=== PATIENT | male | born 1960 | race Asian ===

== ENCOUNTER 2018-04-23 02:02 | Inpatient (IN) | payer MEDICAID ==
[2018-04-23] VITALS (7 sets, daily range): BP systolic 100–118
[~2018-04-23] VITALS: Ht 170.2 cm; Wt 60.8 kg
[2018-04-23] MEDS ORDERED: NACL 0.9% 1,000 ML IV ONE (02:30)
[2018-04-23] MEDS ORDERED: LIDOCAINE 1% 10 MG/ML, 20 ML MDV INJ ONE (02:45)
[2018-04-23 03:17] LABS: INR 0.9 (0.80-1.20); PROTHROMBIN TIME 9.7 SECS (9.5-12.5)
[2018-04-23 03:18] LABS: POTASSIUM 3.8 mmol/L (3.5-5.1)
[2018-04-23 03:19] LABS: CALCIUM 8.3 mg/dL (8.4-11.0); CREATININE 1.12 mg/dL (0.55-1.30)
[2018-04-23 03:20] LABS: TOTAL BILIRUBIN 0.6 mg/dL (0.0-1.0)
[2018-04-23 03:21] LABS: ALBUMIN 3.2 g/dL (3.4-4.8)
[2018-04-23 04:00] LABS: BILIRUBIN,URINE NEGATIVE (NEGATIVE); BLOOD, URINE NEGATIVE (NEGATIVE); CLARITY/URINE CLEAR (CLEAR); COLOR,URINE YELLOW (YELLOW); GLUCOSE,URINE NEGATIVE (NEGATIVE); KETONES,URINE NEGATIVE (NEGATIVE); PH,URINE 6.5 (5.0-8.0); PROTEIN URINE NEGATIVE (NEGATIVE)
[2018-04-23 04:01] LABS: LEUKOCYTE ESTERASE ,URINE NEGATIVE (NEGATIVE); NITRITE, URINE NEGATIVE (NEGATIVE); UROBILINOGEN,URINE 0.2 (0.2-1.0)
[2018-04-23 04:04] LABS: HEMATOCRIT 43.2 % (36-54); HEMOGLOBIN 14.4 g/dL (14.0-18.0); MEAN CORPUSCULAR HEMOGLOBIN 30 pg (27-31); MEAN CORPUSCULAR HGB CONC 33 % (32-36); MEAN CORPUSCULAR VOLUME 89 fL (79.0-98.0); PLATELET COUNT (AUTO) 242 K/uL (130-430); RED BLOOD CELL COUNT(AUTO) 4.86 MIL/uL (4.2-6.2); RED CELL DISTRIBUTION WIDTH 12.6 % (9.0-15.0); WHITE BLOOD COUNT (AUTO) 12.9 K/uL (4.8-10.8)
[2018-04-23 04:06] LABS: ATYPICAL LYMPHOCYTES % 0 % (0-0); BAND % (MANUAL) 3 % (0-6); BASOPHILS % (MANUAL) 0 % (0-2); EOSINOPHILS % (MANUAL) 2 % (0-7); LYMPHOCYTES % (MANUAL) 7 % (20-46); METAMYELOCYTES % 1 % (0-0); MONOCYTES % (MANUAL) 7 % (0-11)
[2018-04-23 04:19] LABS: MYELOCYTES % 0 % (0-0)
[2018-04-23] MEDS ORDERED: CLINDAMYCIN 900 MG in D5W 100 ML IV ONE (04:30)
[2018-04-23] MEDS ORDERED: CLINDAMYCIN 900 mg/50mL D5W 50 ML IV ONE (05:42)
[2018-04-23] MEDS ORDERED: ACETAMINOPHEN 325 MG TABLET PO PRN (06:45)
[2018-04-23] MEDS ORDERED: HYDROcodone/ACETAMIN 10-325 MG TAB PO PRN (06:45)
[2018-04-23] MEDS ORDERED: ONDANSETRON HCL 4 MG/2 ML VIAL IVP PRN (06:45)
[2018-04-23] MEDS ORDERED: LORazepam 2 MG/ML VIAL IVP PRN (06:45)
[2018-04-23] MEDS ORDERED: HYDROcodone/ACETAMIN 5-325 MG TAB (NORCO/ VICODIN) PO PRN (06:45)
[2018-04-23] MEDS ORDERED: NORMAL SALINE 5 ML DISP.SYRIN IVF SCH (14:00)
== END 2018-04-23 20:00 | disposition short-term general hospital (02) | DRG 384 ==
LOC: SED 02:02 → STU 06:39
PROVIDERS: ADMIT Preventive Medicine Preventive Medicine/Occupational Environmental Medicine; ATTEND Preventive Medicine Preventive Medicine/Occupational Environmental Medicine
PROC: 0HQ1XZZ Repair Face Skin, External Approach (ICD-10-PCS; principal; 2018-04-23)
DX: S01.81XA Laceration without foreign body of other part of head, initial encounter (principal); E83.52 Hypercalcemia; E88.09 Other disorders of plasma-protein metabolism, not elsewhere classified; S02.40CA Maxillary fracture, right side, initial encounter for closed fracture; G90.8 Other disorders of autonomic nervous system; S02.2XXA Fracture of nasal bones, initial encounter for closed fracture; S14.5XXA Injury of cervical sympathetic nerves, initial encounter; S02.82XA Fracture of other specified skull and facial bones, left side, initial encounter for closed fracture; W18.39XA Other fall on same level, initial encounter; R91.8 Other nonspecific abnormal finding of lung field; R73.9 Hyperglycemia, unspecified; W18.30XA Fall on same level, unspecified, initial encounter; Z85.22 Personal history of malignant neoplasm of nasal cavities, middle ear, and accessory sinuses; Y93.89 Activity, other specified; Y92.091 Bathroom in other non-institutional residence as the place of occurrence of the external cause; Y99.8 Other external cause status
CPT/HCPCS: 36415; 70450-TC; 70486-TC; 71045; 72125-TC; 80053; 81003; 83605; 84484; 85007; 85027; 85610-TC; 85730-TC; 87040-TC; 87086; 93005; 93306; 96361; 96365; 99285; G0378; J3490